=== PATIENT | female | born 1945 | race Caucasian/White ===

== ENCOUNTER 2022-12-17 09:48 | Inpatient (IN) ==
[2022-12-17] MEDS ORDERED: cefTRIAXone 1 gm/50 mL D5W 1 GM/50 ML BAG IV ONE (10:13)
[2022-12-17] MEDS ORDERED: Azithromycin 500 mg/250 ml NS 500 MG/250 ML BAG IVPB ONE (10:14)
[2022-12-17] MEDS ORDERED: Albuterol/Ipratropium NEB.SOL (2.5/0.5 MG) 3 ML NEB.SOLN INH ONE (10:16)
[2022-12-17] MEDS ORDERED: Albuterol/Ipratropium NEB.SOL (2.5/0.5 MG) 3 ML NEB.SOLN ONE (10:17)
[2022-12-17 10:44] LABS: Albumin 4.5 g/dL (3.2-5.2); Albumin/Globulin Ratio 1.3 (1-3); C Reactive Protein 3.22 mg/L (<8.01); Calcium 9.3 mg/dL (8.6-10.3); Creatinine, Serum 0.89 mg/dL (0.51-0.95); Globulin 3.4 g/dL (2-4); Potassium 3.9 mmol/L (3.5-5.0); Total Bilirubin 0.6 mg/dL (0.2-1.0); Total Protein 7.9 g/dL (6.4-8.9); eGFR CKD-EPI 65.9 (>60)
[2022-12-17 10:46] LABS: ABS Basophils 0.1 10^3/uL (0.0-0.1); ABS Eosinophils 0.1 10^3/uL (0.0-0.5); ABS Lymphocytes 1.4 10^3/uL (1.0-4.8); ABS Monocytes 0.4 10^3/uL (0.0-0.9); ABS Neutrophils 4.9 10^3/uL (1.5-7.6); ABS Nucleated RBC 0.01 10^3/ul; Eosinophil % 0.7 %; Hemoglobin 17.7 g/dL (11.5-14.3); Lymphocyte % 20.1 %; Mean Corpuscular Hemoglobin 32.6 pg (27-33); Mean Corpuscular Hgb Conc 34.6 g/dL (31-36); Mean Corpuscular Volume 94.3 fL (80-97); Mean Platelet Volume 7.6 fL (7.5-11.2); Nucleated Red Blood Cells % 0.2 /100 WBC (0.0-0.4); Platelet Count 262 10^3/uL (150-450); Red Blood Count 5.42 10^6/uL (3.63-4.92); White Blood Count 6.8 10^3/uL (3.8-11.8)
[2022-12-17 11:59] LABS: High Sensitivity Troponin 1 Hr 8 pg/mL (<15)
[2022-12-17] MEDS ORDERED: Albuterol/Ipratropium NEB.SOL (2.5/0.5 MG) 3 ML NEB.SOLN INH SCH ×2 (13:00→14:00)
[2022-12-17] MEDS ORDERED: Albuterol HFA INHALER 8 gm MDI INH PRN (13:17)
[2022-12-17] MEDS: Albuterol/Ipratropium NEB.SOL (2.5/0.5 MG) 3 ML NEB.SOLN INH SCH ×2 (15:42→19:40)
[2022-12-17] MEDS: Enoxaparin 40 MG/0.4 ML SYR SUBCUT SCH (17:55)
[2022-12-18] MEDS: Albuterol/Ipratropium NEB.SOL (2.5/0.5 MG) 3 ML NEB.SOLN INH SCH ×4 (07:28→19:25)
[2022-12-18] MEDS: AZITHROMYCIN 500 MG TAB PO SCH (10:00)
[2022-12-18] MEDS: cefTRIAXone 1 gm/50 mL D5W 1 GM/50 ML BAG IV SCH (10:01)
[2022-12-18] MEDS: Enoxaparin 40 MG/0.4 ML SYR SUBCUT SCH (14:04)
[2022-12-19 06:36] LABS: ABS Basophils 0.1 10^3/uL (0.0-0.1); ABS Lymphocytes 1.4 10^3/uL (1.0-4.8); ABS Monocytes 0.6 10^3/uL (0.0-0.9); ABS Neutrophils 4.2 10^3/uL (1.5-7.6); ABS Nucleated RBC 0.01 10^3/ul; Eosinophil % 0.3 %; Hematocrit 44.8 % (35-45); Hemoglobin 15.3 g/dL (11.5-14.3); Lymphocyte % 22.3 %; Mean Corpuscular Hemoglobin 32.4 pg (27-33); Mean Corpuscular Hgb Conc 34.2 g/dL (31-36); Mean Corpuscular Volume 94.5 fL (80-97); Mean Platelet Volume 7.5 fL (7.5-11.2); Nucleated Red Blood Cells % 0.2 /100 WBC (0.0-0.4); Platelet Count 254 10^3/uL (150-450); Red Blood Count 4.74 10^6/uL (3.63-4.92); White Blood Count 6.4 10^3/uL (3.8-11.8)
[2022-12-19 06:49] LABS: Calcium 9.7 mg/dL (8.6-10.3); Creatinine, Serum 0.93 mg/dL (0.51-0.95); Potassium 4.8 mmol/L (3.5-5.0); eGFR CKD-EPI 62.5 (>60)
[2022-12-19] MEDS: Albuterol/Ipratropium NEB.SOL (2.5/0.5 MG) 3 ML NEB.SOLN INH SCH ×4 (07:22→19:13)
[2022-12-19] MEDS: AZITHROMYCIN 500 MG TAB PO SCH (08:48)
[2022-12-19] MEDS ORDERED: methylPREDNISolone SOD SUCC 125 mg 2 ML VIAL IV ONE (10:15)
[2022-12-19] MEDS: cefTRIAXone 1 gm/50 mL D5W 1 GM/50 ML BAG IV SCH (10:23)
[2022-12-19] MEDS: Mometasone/Formoter 200/5 MDI INH SCH ×2 (11:32→19:13)
[2022-12-19] MEDS: Enoxaparin 40 MG/0.4 ML SYR SUBCUT SCH (14:46)
[2022-12-19] MEDS: Fluticasone NASAL SPRAY 50MCG 16 gm SPRAY BTL BOTH NARES SCH (14:47)
[2022-12-19] MEDS: methylPREDNISolone SOD SUCC 40 mg/ml 1 ml VIAL IV SCH (17:11)
[2022-12-19 19:03] LABS: Magnesium 2.1 mg/dL (1.9-2.7)
[2022-12-20] MEDS: methylPREDNISolone SOD SUCC 40 mg/ml 1 ml VIAL IV SCH ×3 (01:25→18:09)
[2022-12-20] MEDS: Saline NASAL SPRAY 0.65% BTL BOTH NARES PRN (02:15)
[2022-12-20 06:48] LABS: ABS Lymphocytes 0.5 10^3/uL (1.0-4.8); ABS Monocytes 0.2 10^3/uL (0.0-0.9); ABS Neutrophils 4.6 10^3/uL (1.5-7.6); ABS Nucleated RBC 0.01 10^3/ul; Hematocrit 45.3 % (35-45); Hemoglobin 15.9 g/dL (11.5-14.3); Lymphocyte % 9.6 %; Mean Corpuscular Hemoglobin 32.9 pg (27-33); Mean Platelet Volume 7.4 fL (7.5-11.2); Nucleated Red Blood Cells % 0.1 /100 WBC (0.0-0.4); Platelet Count 254 10^3/uL (150-450); Red Blood Count 4.82 10^6/uL (3.63-4.92); Red Cell Distribution Width 13.6 % (12-17); White Blood Count 5.3 10^3/uL (3.8-11.8)
[2022-12-20 07:01] LABS: Calcium 9.6 mg/dL (8.6-10.3); Creatinine, Serum 0.96 mg/dL (0.51-0.95); Magnesium 2.1 mg/dL (1.9-2.7); eGFR CKD-EPI 60.2 (>60)
[2022-12-20] MEDS: Mometasone/Formoter 200/5 MDI INH SCH ×2 (07:31→19:31)
[2022-12-20] MEDS: Albuterol/Ipratropium NEB.SOL (2.5/0.5 MG) 3 ML NEB.SOLN INH SCH ×4 (07:31→19:32)
[2022-12-20] MEDS: Fluticasone NASAL SPRAY 50MCG 16 gm SPRAY BTL BOTH NARES SCH (08:28)
[2022-12-20] MEDS: cefTRIAXone 1 gm/50 mL D5W 1 GM/50 ML BAG IV SCH (10:02)
[2022-12-20] MEDS: Nicotine PATCH 21 MG/24 HR PATCH TRANSDERM SCH (13:24)
[2022-12-20] MEDS: Enoxaparin 40 MG/0.4 ML SYR SUBCUT SCH (13:24)
[2022-12-21] MEDS: methylPREDNISolone SOD SUCC 40 mg/ml 1 ml VIAL IV SCH (01:11)
[2022-12-21] MEDS: Saline NASAL SPRAY 0.65% BTL BOTH NARES PRN (03:24)
[2022-12-21 06:47] LABS: ABS Lymphocytes 0.4 10^3/uL (1.0-4.8); ABS Monocytes 0.3 10^3/uL (0.0-0.9); ABS Neutrophils 5.3 10^3/uL (1.5-7.6); ABS Nucleated RBC 0.01 10^3/ul; Hematocrit 45.9 % (35-45); Hemoglobin 15.8 g/dL (11.5-14.3); Lymphocyte % 7.3 %; Mean Corpuscular Hemoglobin 32.5 pg (27-33); Mean Corpuscular Hgb Conc 34.5 g/dL (31-36); Mean Corpuscular Volume 94.3 fL (80-97); Mean Platelet Volume 7.4 fL (7.5-11.2); Nucleated Red Blood Cells % 0.2 /100 WBC (0.0-0.4); Platelet Count 268 10^3/uL (150-450); Red Blood Count 4.87 10^6/uL (3.63-4.92); Red Cell Distribution Width 13.6 % (12-17)
[2022-12-21 06:55] LABS: Calcium 9.3 mg/dL (8.6-10.3); Creatinine, Serum 0.99 mg/dL (0.51-0.95); Potassium 4.7 mmol/L (3.5-5.0)
[2022-12-21] MEDS: Albuterol/Ipratropium NEB.SOL (2.5/0.5 MG) 3 ML NEB.SOLN INH SCH ×3 (07:33→15:55)
[2022-12-21] MEDS: Mometasone/Formoter 200/5 MDI INH SCH (07:34)
[2022-12-21] MEDS: Fluticasone NASAL SPRAY 50MCG 16 gm SPRAY BTL BOTH NARES SCH (08:05)
[2022-12-21] MEDS: Nicotine PATCH 21 MG/24 HR PATCH TRANSDERM SCH (08:05)
[2022-12-21] MEDS: cefTRIAXone 1 gm/50 mL D5W 1 GM/50 ML BAG IV SCH (10:53)
[2022-12-21] MEDS: Enoxaparin 40 MG/0.4 ML SYR SUBCUT SCH (14:12)
[2022-12-21 14:37] VITALS: BP 141/69
== END 2022-12-21 16:20 | disposition home or self-care (01) | DRG 189 ==
LOC: EDHOLD 09:48 → ED 09:48 → SUATTDRO 12:17 → MED 14:51 → SUATTDRO 12-19 12:08
PROVIDERS: ADMIT Student in an Organized Health Care Education/Training Program; ATTEND Internal Medicine